=== PATIENT | female | born 1965 | race American Indian/Alaskan Native ===

== ENCOUNTER 2018-12-07 10:46 | Emergency (ER) | payer OTHER, MEDICARE ==
[2018-12-07 11:01] VITALS: BP 151/107
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
--- NOTE | 2018-12-07 12:35 | Cat Scan Report ---
CT SCAN OF THE CERVICAL SPINE: HISTORY: Neck pain. TECHNIQUE: Contiguous 1.25 mm axial images of the cervical spine were obtained. Sagittal and coronal reformatted images. FINDINGS: There has been previous anterior fusion at C5-6. The C5-6 disc space is fused. Moderate degenerative disc disease is identified at C3-4, C4-5 and C6-7. The remaining levels are within normal limits. The facet joints are unremarkable. No evidence for fracture, subluxation or bone lesion. IMPRESSION: No acute process. Stable appearance of anterior fusion of C5-6. Moderate degenerative disc disease as described.
--- NOTE | 2018-12-07 12:37 | Cat Scan Report ---
CT THORACIC SPINE WITHOUT CONTRAST History: Upper back pain. Technique: Helical CT without IV contrast. Sagittal and coronal reformatted images. Findings: There is no evidence for displaced fracture, compression deformity, subluxation or bone lesion. Minimal anterior spurring is noted in the mid thoracic spine. The posterior elements are unremarkable. The paraspinal soft tissues are within normal limits. Impression: Minimal thoracic spondylosis. No acute injury is identified.
== END 2018-12-07 13:18 | disposition home or self-care (01) ==
LOC: ED 10:46
DX: S16.1XXA Strain of muscle, fascia and tendon at neck level, initial encounter (principal); S29.012A Strain of muscle and tendon of back wall of thorax, initial encounter; S20.219A Contusion of unspecified front wall of thorax, initial encounter; F41.9 Anxiety disorder, unspecified; F32.9 Major depressive disorder, single episode, unspecified; J45.909 Unspecified asthma, uncomplicated; Z90.49 Acquired absence of other specified parts of digestive tract; Z91.040 Latex allergy status; Z88.0 Allergy status to penicillin; Z88.6 Allergy status to analgesic agent; Z90.710 Acquired absence of both cervix and uterus; Z98.890 Other specified postprocedural states; V49.49XA Driver injured in collision with other motor vehicles in traffic accident, initial encounter; Y93.89 Activity, other specified; Y92.410 Unspecified street and highway as the place of occurrence of the external cause; Y99.8 Other external cause status
CPT/HCPCS: 71111; 72125; 72128; 93005; 93010

== ENCOUNTER 2019-04-15 23:40 | Emergency (ER) | payer MEDICARE ==
--- NOTE | 2019-04-16 00:24 | XRay Report ---
EXAM: XR CHEST 1V AP HISTORY: Chest Pain TECHNIQUE: PA and lateral chest x-ray dated 04/16/2019 at 12:11 AM. COMPARISON: Chest x-ray dated December 07, 2018 FINDINGS: The heart size and mediastinum are within normal limits. The lung karimi and costophrenic angles are clear. There is no acute parenchymal infiltrate, pleural effusion, or pneumothorax seen. Status pos t anterior cervical spine fusion with metallic plate and screws in situ. The visualized bony structur es are otherwise within normal limits. Status post cholecystectomy. IMPRESSION: 1. No evidence for acute cardiopulmonary disease seen. 2. No significant interval change from the previous exam. This document is electronically signed by Fabiola Luevano MD., Apr 16 2019 12:22:50 AM ET
--- NOTE | 2019-04-16 02:05 | Emergency Department Report ---
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 Patient presented to the ER complaining of left sided chest pain, sharp in nature with no radiation. Patient stated that pain started all of a sudden around 6 PM. Patient denied any shortness of breath, cough, fever or chills. MD Complaint: chest pain -: Sudden Onset: during rest Pain Location: left chest Pain Radiation: none Severity scale (0 -10): 8 Quality: sharp Consistency: constant - Related Data Previous Rx's Medication Instructions Recorded Last Taken Type Acetaminophen/Codeine [Tylenol 1 tab PO TID PRN #15 tab 12/07/18 Unknown Rx /Codeine # 3 tab] Metaxalone [Skelaxin] 800 mg PO TID PRN #12 tablet 12/07/18 Unknown Rx Allergies Allergy/AdvReac Type Severity Reaction Status Date / Time latex Allergy Hives Verified 07/05/15 13:48 Penicillins Allergy Swelling Verified 07/05/15 13:48 aspirin AdvReac PALPITATION Verified 07/05/15 13:48 Heart Score - HEART Score History: Slightly suspicious EKG: Non-specific Age: 45-65 Risk factors: 1-2 risk factors Troponin: < normal limit HEART Score: 3 - Critical Actions Critical Actions: 0-3 pts:0.9-1.7%risk of adverse cardiac event.Candidate for discharge ED Review of Systems ROS: Stated complaint: CHEST PAIN/LT ARM PAIN Other details as noted in HPI Comment: All other systems reviewed and negative Constitutional: denies: chills, fever Respiratory: denies: cough, orthopnea, shortness of breath, SOB with exertion, SOB at rest, wheezing Cardiovascular: chest pain. denies: palpitations Gastrointestinal: denies: abdominal pain, nausea, vomiting Neurological: denies: headache, weakness ED Past Medical Hx - Past Medical History Previous Medical History?: Yes Hx Psychiatric Treatment: Yes (ANXIETY/ DEPRESSION) Hx Asthma: Yes Additional medical history: HEEL SPURS - Surgical History Past Surgical History?: Yes Hx Cholecystectomy: Yes Additional Surgical History: ECTOPIC ? L/VS/R. HYSTERECTOMY. NECK SURGERY/HERNIATED DISC - Social History Smoking Status: Former Smoker Substance Use Type: None - Medications Home Medications: Home Medications Medication Instructions Recorded Confirmed Last Taken Type Acetaminophen/Codeine [Tylenol 1 tab PO TID PRN #15 tab 12/07/18 Unknown Rx /Codeine # 3 tab] Metaxalone [Skelaxin] 800 mg PO TID PRN #12 tablet 12/07/18 Unknown Rx ED Physical Exam - General Limitations: No Limitations General appearance: alert, in no apparent distress - Head Head exam: Present: atraumatic, normocephalic, normal inspection - Eye Eye exam: Present: normal appearance, PERRL - ENT ENT exam: Present: normal exam, normal orophraynx, mucous membranes moist - Neck Neck exam: Present: normal inspection, full ROM. Absent: tenderness, meningismus, lymphadenopathy, thyromegaly - Respiratory Respiratory exam: Present: normal lung sounds bilaterally, chest wall tenderness - Cardiovascular Cardiovascular Exam: Present: regular rate, normal rhythm, normal heart sounds - GI/Abdominal GI/Abdominal exam: Present: soft, normal bowel sounds. Absent: distended, tenderness, guarding, rebound, rigid, organomegaly, mass, bruit, pulsatile mass, hernia - Extremities Exam Extremities exam: Present: normal inspection, full ROM, normal capillary refill - Back Exam Back exam: Present: normal inspection, full ROM. Absent: tenderness, CVA tenderness (R), CVA tenderness (L), muscle spasm, paraspinal tenderness, vertebral tenderness - Neurological Exam Neurological exam: Present: alert, oriented X3, CN II-XII intact, normal gait, reflexes normal - Skin Skin exam: Present: warm, intact, normal color ED Course Vital Signs 04/15/19 04/16/19 04/16/19 23:51 01:38 01:45 Temperature 97.8 F Pulse Rate 73 64 62 Respiratory 20 20 12 Rate Blood Pressure 136/92 112/72 Blood Pressure [Left] O2 Sat by Pulse 96 98 96 Oximetry 04/16/19 04/16/19 04/16/19 02:00 02:15 02:24 Temperature Pulse Rate 60 66 63 Respiratory 12 18 18 Rate Blood Pressure 112/72 105/63 Blood Pressure 105/63 [Left] O2 Sat by Pulse 95 98 Oximetry 04/16/19 04/16/19 04/16/19 02:30 02:46 03:00 Temperature Pulse Rate 65 64 60 Respiratory 14 13 12 Rate Blood Pressure 105/63 97/63 106/67 Blood Pressure [Left] O2 Sat by Pulse 93 97 Oximetry 04/16/19 04/16/19 04/16/19 03:16 03:30 03:46 Temperature Pulse Rate 56 L 58 L 60 Respiratory 13 12 14 Rate Blood Pressure 110/61 119/64 116/63 Blood Pressure [Left] O2 Sat by Pulse 99 92 Oximetry 04/16/19 04/16/19 04/16/19 04:00 04:16 04:30 Temperature Pulse Rate 63 66 58 L Respiratory 15 13 10 L Rate Blood Pressure 116/63 106/59 106/59 Blood Pressure [Left] O2 Sat by Pulse 94 96 Oximetry 04/16/19 04/16/19 04/16/19 04:46 05:00 05:16 Temperature Pulse Rate 56 L 56 L 74 Respiratory 14 11 L 10 L Rate Blood Pressure 103/56 103/56 98/54 Blood Pressure [Left] O2 Sat by Pulse 98 96 96 Oximetry 04/16/19 04/16/19 05:38 05:46 Temperature Pulse Rate Respiratory Rate Blood Pressure 103/56 103/56 Blood Pressure [Left] O2 Sat by Pulse 97 99 Oximetry ED Medical Decision Making - Lab Data Result diagrams: 04/16/19 01:45 04/16/19 01:45 - EKG Data -: EKG Interpreted by Nv EKG shows normal: sinus rhythm Rate: normal - EKG Data Interpretation: no acute changes - Radiology Data Radiology results: report reviewed Chest x-ray is unremarkable. 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 Patient presented to the ER complaining of left sided chest pain, sharp in nature with no radiation. Patient stated that pain started all of a sudden around 6 PM. Patient denied any shortness of breath, cough, fever or chills. Patient EKG is unremarkable. Troponin is negative. D-dimer elevated at CTA chest is negative for pulmonary embolism, aortic dissection or any other acute pathology in the chest. Patient advised to follow-up with her primary care physician for further workup and advised to return to the ER if symptoms are not improved. Critical care attestation.: If time is entered above; I have spent that time in minutes in the direct care of this critically ill patient, excluding procedure time. ED Disposition Clinical Impression: Chest pain Disposition: DC-01 TO HOME OR SELFCARE Is pt being admited?: No Condition: Stable Instructions: Chest Pain (ED), Costochondritis (ED) Referrals: JENNIFER CABRERA MD [Primary Care Provider] - 3-5 Days
[2019-04-16 02:12] LABS: Basophils # (Auto) 0.1 K/mm3 (0.0-0.1); Basophils % (Auto) 0.8 % (0.0-1.8); Eosinophils # (Auto) 0.4 K/mm3 (0.0-0.4); Eosinophils % (Auto) 5.1 % (0.0-4.3); Hematocrit 39.8 % (30.3-42.9); Hemoglobin 13.3 gm/dl (10.1-14.3); Lymphocytes # (Auto) 2.9 K/mm3 (1.2-5.4); Mean Corpuscular HGB Conc 33 % (30-34); Mean Corpuscular Volume 96 fl (79-97); Monocytes # (Auto) 0.5 K/mm3 (0.0-0.8); Monocytes % (Auto) 7.8 % (0.0-7.3); Platelet Count 163 K/mm3 (140-440); Red Blood Count 4.16 M/mm3 (3.65-5.03); Red Cell Distribution Width 13.9 % (13.2-15.2)
[2019-04-16 02:26] LABS: BUN/Creatinine Ratio 12; Blood Urea Nitrogen 12 mg/dL (7-17); Calcium 9.1 mg/dL (8.4-10.2); Hemolysis Index 4
[2019-04-16] MEDS ORDERED: ZOFRAN IM ONE (03:12)
[2019-04-16] MEDS ORDERED: MORPHINE IM ONE (03:12)
[2019-04-16] MEDS ORDERED: MORPHINE ONE (03:16)
--- NOTE | 2019-04-16 05:50 | Cat Scan Report ---
PROCEDURE: CT ANGIO CHEST TECHNIQUE: Computerized tomographic angiography of the chest was performed after the IV injection of iodinated nonionic contrast including image processing. The image data was postprocessed using 2-di mensional multiplanar reformatted (MPR) and 3-dimensional (MIP and/or volume rendered) techniques. Au tomated exposure control, adjustment of mA and/or kV according to patient size, or iterative reconstr uction dose optimization techniques were utilized. CT DOSE LENGTH PRODUCT: mGycm HISTORY: CHEST PAIN WITH ELEVATED D-DIMER COMPARISONS: Chest x-ray 04/16/2019 . FINDINGS: Heart and pericardium: The heart is mildly enlarged. There is no evidence of pericardial effusion.. Thoracic aorta: Normal. Pulmonary vasculature: Normal. Lymph nodes: No enlarged thoracic lymph nodes. Lungs: Normal. Pleural space: No effusion, thickening, or pneumothorax. Musculoskeletal structures: No significant abnormality. Upper abdominal structures: The gallbladder has been removed.. IMPRESSION: No evidence of pulmonary embolus, aortic dissection, or vascular congestion. No acute process in the chest. Cholecystectomy.. This document is electronically signed by Kelton Jackson MD., Apr 16 2019 05:48:22 AM ET
[2019-04-16 06:23] VITALS: BP 98/54
== END 2019-04-16 06:29 | disposition home or self-care (01) ==
LOC: ED 23:40
DX: R07.89 Other chest pain (principal); J45.909 Unspecified asthma, uncomplicated; F32.9 Major depressive disorder, single episode, unspecified; F41.9 Anxiety disorder, unspecified; Z90.710 Acquired absence of both cervix and uterus; Z90.49 Acquired absence of other specified parts of digestive tract; Z87.891 Personal history of nicotine dependence; Z91.040 Latex allergy status; Z88.0 Allergy status to penicillin; Z88.6 Allergy status to analgesic agent
CPT/HCPCS: 36415; 71045; 71275; 80048; 83690; 84484; 85025; 85379; 93005; 93010; 96372; 99285; J2270; J2405; Q9967

== ENCOUNTER 2020-02-18 19:47 | Emergency (ER) | payer MEDICARE ==
--- NOTE | 2020-02-18 22:28 | XRay Report ---
CHEST 2 VIEWS INDICATION: Chest Pain. COMPARISON: 04/16/2019 FINDINGS: Support devices: None. Heart: Within normal limits. Lungs/pleura: No acute air space or interstitial disease. No pneumothorax. Additional findings: None. IMPRESSION: 1. No acute findings. Signer Name: Wai Hair MD Signed: 02/18/2020 10:23 PM Workstation Name: [email or web address] [id number]
[2020-02-19 00:07] LABS: Basophils # (Auto) 0.1 K/mm3 (0.0-0.1); Basophils % (Auto) 0.6 % (0.0-1.8); Eosinophils # (Auto) 0.3 K/mm3 (0.0-0.4); Eosinophils % (Auto) 3.4 % (0.0-4.3); Hemoglobin 13.2 gm/dl (10.1-14.3); Lymphocytes # (Auto) 3.8 K/mm3 (1.2-5.4); Lymphocytes % (Auto) 46.1 % (13.4-35.0); Mean Corpuscular HGB Conc 33 % (30-34); Mean Corpuscular Volume 96 fl (79-97); Monocytes # (Auto) 0.6 K/mm3 (0.0-0.8); Monocytes % (Auto) 7.1 % (0.0-7.3); Platelet Count 186 K/mm3 (140-440); Red Blood Count 4.17 M/mm3 (3.65-5.03); Red Cell Distribution Width 13.3 % (13.2-15.2)
[2020-02-19 00:16] LABS: BUN/Creatinine Ratio 9; Blood Urea Nitrogen 9 mg/dL (7-17); Calcium 8.7 mg/dL (8.4-10.2); Hemolysis Index 7
[2020-02-19 00:29] LABS: Bilirubin,Urine NEG (Negative); Blood,Urine MOD (Negative); Color,Urine Yellow (Yellow); Mucus,Urine FEW /HPF; Protein,Urine <15 mg/dL mg/dL (Negative); Urobilinogen,Urine < 2.0 mg/dL (<2.0)
[2020-02-19] MEDS ORDERED: CYCLOBENZAPRINE 10 MG TAB PO ONE (02:38)
[2020-02-19] MEDS ORDERED: KETOROLAC 30 MG/1 ML INJ IM ONE (02:38)
--- NOTE | 2020-02-19 02:43 | Emergency Department Report ---
ED Chest Pain HPI - General Chief Complaint: Chest Pain Stated Complaint: CHEST PAIN/KIDNEY PAIN Time Seen by Provider: 02/19/20 02:30 Source: patient Mode of arrival: Ambulatory Limitations: No Limitations - History of Present Illness Initial Comments: 54-year-old -[place] female presents to the emergency department with a complaint of a one-week history of left-sided chest pain and right-sided lower back pain. This is also associated with some intermittent shortness of breath. The patient denies any fever, nausea, vomiting, diaphoresis, dysuria, vaginal discharge, vaginal bleeding. She does say that there is been some intermittent blood seen in the urine. The patient also says that she had some procedure done, 1 week ago, with her urologist. However she is unable to tell me what the procedure or test was, nor the name of her urologist. She follows with [facility] cardiology. She has a past medical history of asthma. Denies any tobacco or illicit drug use. Denies any family history of early cardiac events. She has not taken anything for symptoms prior to presentation today. - Related Data Previous Rx's Medication Instructions Recorded Last Taken Type Acetaminophen/Codeine [Tylenol 1 tab PO TID PRN #15 tab 12/07/18 Unknown Rx /Codeine # 3 tab] Metaxalone [Skelaxin] 800 mg PO TID PRN #12 tablet 12/07/18 Unknown Rx Ondansetron [Zofran Odt] 4 mg PO Q8HR PRN #14 tab.rapdis 04/16/19 Unknown Rx traMADoL [Ultram 50 MG tab] 50 mg PO Q4HR PRN #14 tablet 04/16/19 Unknown Rx Cyclobenzaprine [Flexeril] 10 mg PO TID PRN #12 tablet 02/19/20 Unknown Rx Allergies Allergy/AdvReac Type Severity Reaction Status Date / Time latex Allergy Hives Verified 07/05/15 13:48 nut - unspecified Allergy Itching Verified 02/18/20 21:33 Penicillins Allergy Swelling Verified 07/05/15 13:48 aspirin AdvReac PALPITATION Verified 07/05/15 13:48 Heart Score - HEART Score History: Slightly suspicious EKG: Normal Age: 45-65 Risk factors: No known risk factors Troponin: < normal limit HEART Score: 1 - Critical Actions Critical Actions: 0-3 pts:0.9-1.7%risk of adverse cardiac event.Candidate for discharge ED Review of Systems ROS: Stated complaint: CHEST PAIN/KIDNEY PAIN Other details as noted in HPI ED Past Medical Hx - Past Medical History Previous Medical History?: Yes Hx Psychiatric Treatment: Yes (ANXIETY/ DEPRESSION) Hx Asthma: Yes Additional medical history: HEEL SPURS - Surgical History Past Surgical History?: Yes Hx Cholecystectomy: Yes Additional Surgical History: ECTOPIC ? L/VS/R. HYSTERECTOMY. NECK SURGERY/HERNIATED DISC - Social History Smoking Status: Never Smoker - Medications Home Medications: Home Medications Medication Instructions Recorded Confirmed Last Taken Type Acetaminophen/Codeine [Tylenol 1 tab PO TID PRN #15 tab 12/07/18 Unknown Rx /Codeine # 3 tab] Metaxalone [Skelaxin] 800 mg PO TID PRN #12 tablet 12/07/18 Unknown Rx Ondansetron [Zofran Odt] 4 mg PO Q8HR PRN #14 tab.rapdis 04/16/19 Unknown Rx traMADoL [Ultram 50 MG tab] 50 mg PO Q4HR PRN #14 tablet 04/16/19 Unknown Rx Cyclobenzaprine [Flexeril] 10 mg PO TID PRN #12 tablet 02/19/20 Unknown Rx ED Physical Exam - General Limitations: No Limitations - Other Other exam information: GENERAL: The patient is well-developed well-nourished. HENT: Normocephalic. Atraumatic. Patient has moist mucous membranes. EYES: Extraocular motions are intact. NECK: Supple. Trachea is midline. CHEST/LUNGS: Clear to auscultation. There is no respiratory distress noted. There is reproducible chest wall left-sided tenderness to palpation, but no crepitus or deformity. HEART/CARDIOVASCULAR: Regular. There is no tachycardia. There is no murmur. ABDOMEN: Abdomen is soft, nontender. Patient has normal bowel sounds. There is no abdominal distention. SKIN: Skin is warm and dry. NEURO: The patient is awake, alert, and oriented. The patient is cooperative. The patient has no focal neurologic deficits. Normal speech. MUSCULOSKELETAL: There is no tenderness or deformity. There is no limitation range of motion. There is no evidence of acute injury. BACK: No midline thoracic or lumbar tenderness to palpation, step-off or deformity. There is reproducible right lower thoracic and lumbar paraspinal te nderness to palpation. ED Course Vital Signs 02/18/20 21:38 Temperature 98.5 F Pulse Rate 74 Respiratory 20 Rate Blood Pressure 124/80 O2 Sat by Pulse 98 Oximetry REBEL score - Rebel Score Age > 65: (0) No Aspirin use within the Past 7 Days: (0) No 3 or more CAD Risk Factors: (0) No 2 or more Angina events in past 24 hrs: (1) Yes Known CAD with more than 50% Stenosis: (0) No Elevated Cardiac Markers: (0) No ST Deviation Greater than 0.5mm: (0) No REBEL Score: 1 ED Medical Decision Making - Lab Data Result diagrams: 02/18/20 23:03 02/18/20 23:03 - EKG Data -: EKG Interpreted by Me EKG shows normal: sinus rhythm, axis, intervals, QRS complexes, ST-T waves Rate: normal - EKG Data When compared to previous EKG there are: previous EKG unavailable Interpretation: normal EKG - Radiology Data Radiology results: image reviewed interpreted by me: Chest x-ray does not show any acute process. There are no pleural effusions, obvious pneumonia and there is no pneumothorax. - Medical Decision Making This patient presents with a one-week history of some left-sided chest pain and right mid to lower back pain. On examination she has normal heart and lung sounds to auscultation. There is some reproducible chest pain to palpation without crepitus or deformity. There is some reproducible right-sided paraspinal tenderness to palpation but no midline thoracic or lumbar tenderness to palpation, step-off or deformity. EKG is normal without ST elevation AR, ischemia or dysrhythmia. Chest x-ray does not show any pneumonia, pleural effusions, pneumothorax, focal consolidation, or any other acute process. Patient's labs have been unremarkable including CBC, metabolic panel and negative troponins x2. She is low on the heart and REBEL score. She is low on the Wells score criteria and negative on the pulmonary embolism rule out criteria. The patient was given a shot of Toradol here and a dose of Flexeril. She has good outpatient follow-up with primary care and cardiology. She had made some mention regarding occasional hematuria and some procedure she had with urology, however the urinalysis does not show any UTI or hematuria at this time. Her vital signs have been stable throughout her ED course. She will return to the emergency department with any worsening of her symptoms or any acute distress. Critical Care Time: No Critical care attestation.: If time is entered above; I have spent that time in minutes in the direct care of this critically ill patient, excluding procedure time. ED Disposition Clinical Impression: Atypical chest pain, Chest wall pain Back pain Qualifiers: Back pain location: back pain in unspecified location Chronicity: unspecified Back pain laterality: right Qualified Code(s): M54.9 - Dorsalgia, unspecified Disposition: DC- TO HOME OR SELFCARE Is pt being admited?: No Condition: Stable Instructions: Chest Pain (ED), Costochondritis (ED), Back Pain (ED) Additional Instructions: Please follow-up with your primary care physician and customer engagement representative in the next few days. Return to the emergency department with any worsening of your symptoms or any acute distress. You have been prescribed a medication that is sedating and therefore should not be taken prior to driving, working, and responsible for children and in no way should be mixed with alcohol of any quantity. Prescriptions: Cyclobenzaprine [Flexeril] 10 mg PO TID PRN #12 tablet PRN Reason: Muscle Spasm Referrals: PRIMARY CAREMD [Primary Care Provider] - 2-3 Days [facility] [Provider Group] - 2-3 Days Time of Disposition: 03:25
[2020-02-19 04:10] VITALS: BP 125/82
== END 2020-02-19 04:09 | disposition home or self-care (01) ==
LOC: ED 19:47
DX: R07.89 Other chest pain (principal); M54.5 Low back pain; R06.02 Shortness of breath; J45.909 Unspecified asthma, uncomplicated; F41.9 Anxiety disorder, unspecified; F32.89 Other specified depressive episodes; Z79.899 Other long term (current) drug therapy
CPT/HCPCS: 36415; 71046; 80048; 81001; 84484; 85025; 93005; 93010; 96372; 99284; J1885

== ENCOUNTER 2020-04-29 19:14 | Emergency (ER) | payer MEDICARE ==
[2020-04-29 20:17] LABS: Basophils % (Auto) 0.3 % (0.0-1.8); Eosinophils % (Auto) 0.2 % (0.0-4.3); Hematocrit 40.5 % (30.3-42.9); Hemoglobin 13.5 gm/dl (10.1-14.3); Lymphocytes # (Auto) 2.5 K/mm3 (1.2-5.4); Lymphocytes % (Auto) 22.6 % (13.4-35.0); Mean Corpuscular HGB Conc 33 % (30-34); Mean Corpuscular Volume 95 fl (79-97); Monocytes # (Auto) 1.1 K/mm3 (0.0-0.8); Monocytes % (Auto) 9.7 % (0.0-7.3); Platelet Count 202 K/mm3 (140-440); Red Blood Count 4.29 M/mm3 (3.65-5.03); Red Cell Distribution Width 13.6 % (13.2-15.2)
--- NOTE | 2020-04-29 20:17 | Emergency Department Report ---
ED Syncope HPI - General Chief Complaint: Syncope Stated Complaint: FALL Time Seen by Provider: 04/29/20 20:04 Source: patient Exam Limitations: no limitations - History of Present Illness Initial Comments: Chief complaint: "Too much medicine my blood pressure is low. I keep falling." HPI: This is a 54-year-old female with history of asthma, anxiety, hypertension who presents with recurrent syncope over the last several months. She was evaluated by neurologist 4 weeks ago. Neurologist informed her that her blood pressure is low because she is taking too much medication. Her PCP discontinue metoprolol. She is now taking lisinopril and hydrochlorothiazide. She recently lost 30 pounds. She only eats 1 meal per day. She was seen by my colleague in the emergency department this morning. Her blood pressure was low at that time. Work-up notable for hypokalemia. Currently she denies chest pain abdominal pain. She has mild headache. She likely struck her head when she fell today. Medications include trazodone, Cogentin, omeprazole, lisinopril/hydrochlorothia zide Timing/Prior Episodes: recent history Precipitating Factors: Positive: none, other (Hypotension) Context: standing, activity Loss of Consciousness: brief (seconds) Current Symptoms: back to normal - Related Data Allergies/Adverse Reactions: Allergies latex Allergy (Verified 07/05/15 13:48) Hives nut - unspecified Allergy (Verified 02/18/20 21:33) Itching Penicillins Allergy (Verified 07/05/15 13:48) Swelling aspirin Adverse Reaction (Verified 07/05/15 13:48) PALPITATION Home Medications: Ambulatory Orders Acetaminophen/Codeine [Tylenol /Codeine # 3 tab] 1 tab PO TID PRN #15 tab 12/07/18 Metaxalone [Skelaxin] 800 mg PO TID PRN #12 tablet 12/07/18 Ondansetron [Zofran Odt] 4 mg PO Q8HR PRN #14 tab.rapdis 04/16/19 traMADoL [Ultram 50 MG tab] 50 mg PO Q4HR PRN #14 tablet 04/16/19 Cyclobenzaprine [Flexeril] 10 mg PO TID PRN #12 tablet 02/19/20 Potassium Chloride [K-Dur] 2 tab PO QDAY 15 Days #30 tablet 04/29/20 ED Review of Systems ROS: Stated complaint: FALL Other details as noted in HPI Comment: All other systems reviewed and negative Constitutional: denies: fever, malaise Respiratory: denies: cough, shortness of breath Cardiovascular: syncope. denies: chest pain ED Past Medical Hx - Past Medical History Previous Medical History?: Yes Hx Psychiatric Treatment: Yes (ANXIETY/ DEPRESSION) Hx Asthma: Yes Additional medical history: HEEL SPURS - Surgical History Past Surgical History?: Yes Hx Cholecystectomy: Yes Additional Surgical History: ECTOPIC ? L/VS/R. HYSTERECTOMY. NECK SURGERY/HERNIATED DISC - Social History Smoking Status: Never Smoker - Medications Home Medications: Home Medications Medication Instructions Recorded Confirmed Last Taken Type Acetaminophen/Codeine [Tylenol 1 tab PO TID PRN #15 tab 12/07/18 Unknown Rx /Codeine # 3 tab] Metaxalone [Skelaxin] 800 mg PO TID PRN #12 tablet 12/07/18 Unknown Rx Ondansetron [Zofran Odt] 4 mg PO Q8HR PRN #14 tab.rapdis 04/16/19 Unknown Rx traMADoL [Ultram 50 MG tab] 50 mg PO Q4HR PRN #14 tablet 04/16/19 Unknown Rx Cyclobenzaprine [Flexeril] 10 mg PO TID PRN #12 tablet 02/19/20 Unknown Rx Potassium Chloride [K-Dur] 2 tab PO QDAY 15 Days #30 tablet 04/29/20 Unknown Rx ED Physical Exam - General Limitations: No Limitations General appearance: alert, in no apparent distress - Head Head exam: Present: normocephalic, other (Several small healing forehead contusions) - Eye Eye exam: Present: normal appearance - ENT ENT exam: Present: mucous membranes moist - Neck Neck exam: Present: normal inspection, full ROM - Respiratory Respiratory exam: Present: normal lung sounds bilaterally. Absent: respiratory distress, wheezes, rales, rhonchi - Cardiovascular Cardiovascular Exam: Present: regular rate, normal rhythm, normal heart sounds. Absent: systolic murmur, diastolic murmur, rubs, gallop - GI/Abdominal GI/Abdominal exam: Present: soft, normal bowel sounds. Absent: distended, tenderness, guarding, rebound - Extremities Exam Extremities exam: Present: normal inspection - Neurological Exam Neurological exam: Present: alert, oriented X3, normal gait - Psychiatric Psychiatric exam: Present: normal affect, normal mood - Skin Skin exam: Present: warm, dry, intact, normal color. Absent: rash ED Course Vital Signs 04/29/20 04/29/20 04/29/20 19:30 19:37 20:13 Temperature 98.6 F Pulse Rate 99 H Respiratory 18 18 Rate Blood Pressure 94/62 Blood Pressure 90/60 [Right] O2 Sat by Pulse 96 100 Oximetry 04/29/20 20:15 Temperature Pulse Rate 84 Respiratory 18 Rate Blood Pressure Blood Pressure 102/63 [Right] O2 Sat by Pulse 100 Oximetry ED Medical Decision Making - Lab Data Result diagrams: 04/29/20 19:56 04/29/20 19:56 - EKG Data EKG shows normal: sinus rhythm, axis, intervals, QRS complexes, ST-T waves Rate: normal - EKG Data Interpretation: no acute changes - Medical Decision Making This is a 54-year-old female with history of asthma anxiety hypertension who presents with recurrent syncope over the last several months. Neurologist impression hypotension due to antihypertensive medication. Patient has recently lost 30 pounds. Metoprolol was changed to lisinopril hydrochlorothiazide. I have asked patient to stop taking lisinopril hydrochlorothiazide. She will monitor her morning and evening blood pressure readings at home with her personal cuff. She will follow-up with her primary physician. With recent weight loss and decreased food intake, I feel that she may not need antihypertensive medication. Upon lab review, decrease hypovolemia evident with mild metabolic acidosis increased creatinine hypokalemia. I strongly encouraged patient to stop taking blood pressure medication until she is reevaluated by her primary physician Critical care attestation.: If time is entered above; I have spent that time in minutes in the direct care of this critically ill patient, excluding procedure time. ED Disposition Clinical Impression: Recurrent syncope, Hypotension Disposition: DC-01 TO HOME OR SELFCARE Is pt being admited?: No Does the pt Need Aspirin: No Condition: Stable Instructions: Syncope (ED), Hypotension (ED) Additional Instructions: Please stop taking your blood pressure medicine hydrochlorothiazide lisinopril. Please take your morning and evening blood pressure readings. Please take these readings to your next primary care appointment. Prescriptions: Potassium Chloride [K-Dur] 2 tab PO QDAY 15 Days #30 tablet Referrals: PRIMARY CARE, [Referring] - 3-5 Days
[2020-04-29 20:39] LABS: BUN/Creatinine Ratio 11; Blood Urea Nitrogen 17 mg/dL (7-17); Calcium 9.2 mg/dL (8.4-10.2); Hemolysis Index 6
--- NOTE | 2020-04-29 21:00 | XRay Report ---
CHEST 2 VIEWS, 04/29/2020 7:40 PM INDICATION: Chest pain COMPARISON: Chest radiograph, 04/28/2020 FINDINGS: Support devices: None. Heart: The heart is normal in size. Lungs/pleura: The lungs are clear of focal airspace disease or significant pleural effusion. Additional findings: Evaluation of bony structures demonstrates no evidence of acute bony abnormality . IMPRESSION: 1. No evidence of acute cardiopulmonary process. Signer Name: Jannette Louise MD Signed: 04/29/2020 8:56 PM Workstation Name: [id number]
[2020-04-29 21:04] VITALS: BP 90/55
== END 2020-04-29 21:06 | disposition home or self-care (01) ==
LOC: ED 19:14
DX: R55 Syncope and collapse (principal); I95.9 Hypotension, unspecified; F32.9 Major depressive disorder, single episode, unspecified; J45.909 Unspecified asthma, uncomplicated; Z90.49 Acquired absence of other specified parts of digestive tract; Z90.710 Acquired absence of both cervix and uterus; Z98.890 Other specified postprocedural states; Z79.899 Other long term (current) drug therapy; Z88.0 Allergy status to penicillin; Z91.040 Latex allergy status; Z91.018 Allergy to other foods; Z88.8 Allergy status to other drugs, medicaments and biological substances
CPT/HCPCS: 36415; 71046; 80048; 84484; 85025; 93005

== ENCOUNTER 2020-11-05 10:17 | Observation (INO) | payer MEDICARE ==
--- NOTE | 2020-11-05 10:58 | XRay Report ---
CHEST PA AND LATERAL VIEWS INDICATION: Chest Pain. COMPARISON: 04/29/2020 FINDINGS: Support devices: None. Heart: Within normal limits. Lungs/Pleura: No acute pulmonary or pleural findings. IMPRESSION: 1. No acute findings. Signer Name: Bertram Deshpande MD Signed: 11/05/2020 10:53 AM Workstation Name: [id number]
--- NOTE | 2020-11-05 11:04 | Emergency Department Report ---
ED Chest Pain HPI - General Chief Complaint: Chest Pain Stated Complaint: HBP Time Seen by Provider: 11/05/20 10:49 Source: patient Mode of arrival: Ambulatory Limitations: No Limitations - History of Present Illness Initial Comments: This is a 55-year-old -[place] female who presents to the emergency department from the dentist office with a complaint of some chest pain that has been going on since last night. The patient says that she got one of her allergy shots yesterday and last night "I felt weird, like I was not myself." At the time the patient also complained of developing some chest pain. It resolved overnight but returned again this morning. She went to the dentist office and told him of her chest pain and was told to go directly to the emergency department. Currently the chest pain is midsternal with some radiation to the right lateral rib cage. It is a sharp pain, currently 8 out of 10 in intensity. No known aggravating or alleviating factors. Patient has not taken anything for her symptoms prior to presentation. She has a past medical history of hypertension, asthma, and previous Qqejd-[id number] with s ubsequent ablation. She follows with Dr. Fuentes at [facility]. Her primary care physician is "Dr. Guzmán." She denies any tobacco or illicit drug use. No recent travel or sick contacts at home. - Related Data Previous Rx's Medication Instructions Recorded Last Taken Type Acetaminophen/Codeine [Tylenol 1 tab PO TID PRN #15 tab 12/07/18 Unknown Rx /Codeine # 3 tab] Metaxalone [Skelaxin] 800 mg PO TID PRN #12 tablet 12/07/18 Unknown Rx Ondansetron [Zofran ODT TAB] 4 mg PO Q8HR PRN #14 tab.rapdis 04/16/19 Unknown Rx traMADoL [Ultram 50 MG tab] 50 mg PO Q4HR PRN #14 tablet 04/16/19 Unknown Rx Cyclobenzaprine [Flexeril] 10 mg PO TID PRN #12 tablet 02/19/20 Unknown Rx Potassium Chloride [K-Dur] 2 tab PO QDAY 15 Days #30 tablet 04/29/20 Unknown Rx Allergies Allergy/AdvReac Type Severity Reaction Status Date / Time latex Allergy Hives Verified 07/05/15 13:48 nut - unspecified Allergy Itching Verified 02/18/20 21:33 Penicillins Allergy Swelling Verified 07/05/15 13:48 aspirin AdvReac PALPITATION Verified 07/05/15 13:48 Heart Score - HEART Score History: Slightly suspicious EKG: Normal Age: 45-65 Risk factors: 1-2 risk factors Troponin: < normal limit HEART Score: 2 - Critical Actions Critical Actions: 0-3 pts:0.9-1.7%risk of adverse cardiac event.Candidate for discharge ED Review of Systems ROS: Stated complaint: HBP Other details as noted in HPI Comment: All other systems reviewed and negative Constitutional: denies: chills, fever Eyes: denies: eye pain, vision change ENT: denies: ear pain, throat pain Respiratory: shortness of breath. denies: cough Cardiovascular: chest pain. denies: edema Gastrointestinal: denies: nausea, vomiting Genitourinary: denies: dysuria, discharge Musculoskeletal: denies: back pain, arthralgia Skin: denies: rash, lesions Neurological: denies: headache, weakness ED Past Medical Hx - Past Medical History Previous Medical History?: Yes Hx Psychiatric Treatment: Yes (ANXIETY/ DEPRESSION) Hx Asthma: Yes Additional medical history: HEEL SPURS - Surgical History Past Surgical History?: Yes Hx Cholecystectomy: Yes Additional Surgical History: ECTOPIC ? L/VS/R. HYSTERECTOMY. NECK SURGERY/HERNIATED DISC - Social History Smoking Status: Never Smoker Substance Use Type: None - Medications Home Medications: Home Medications Medication Instructions Recorded Confirmed Last Taken Type Acetaminophen/Codeine [Tylenol 1 tab PO TID PRN #15 tab 12/07/18 Unknown Rx /Codeine # 3 tab] Metaxalone [Skelaxin] 800 mg PO TID PRN #12 tablet 12/07/18 Unknown Rx Ondansetron [Zofran ODT TAB] 4 mg PO Q8HR PRN #14 tab.rapdis 04/16/19 Unknown Rx traMADoL [Ultram 50 MG tab] 50 mg PO Q4HR PRN #14 tablet 04/16/19 Unknown Rx Cyclobenzaprine [Flexeril] 10 mg PO TID PRN #12 tablet 02/19/20 Unknown Rx Potassium Chloride [K-Dur] 2 tab PO QDAY 15 Days #30 tablet 04/29/20 Unknown Rx ED Physical Exam - General Limitations: No Limitations - Other Other exam information: GENERAL: The patient is well-developed well-nourished. HENT: Normocephalic. Atraumatic. Patient has moist mucous membranes. EYES: Extraocular motions are intact. There is reproducible midsternal chest pain to palpation. No crepitus or deformity. NECK: Supple. Trachea is midline. CHEST/LUNGS: Clear to auscultation. There is no respiratory distress noted. HEART/CARDIOVASCULAR: Regular. There is no tachycardia. There is no murmur. ABDOMEN: Abdomen is soft. Mild epigastric tenderness to palpation. No guarding. Patient has normal bowel sounds. There is no abdominal distention. SKIN: Skin is warm and dry. NEURO: The patient is awake, alert, and oriented. The patient is cooperative. The patient has no focal neurologic deficits. Normal speech. MUSCULOSKELETAL: There is no tenderness or deformity. There is no limitation range of motion. ED Course Vital Signs 11/05/20 11/05/20 11/05/20 10:22 11:03 11:16 Temperature 98.5 F Pulse Rate 71 64 Respiratory 18 13 11 L Rate Blood Pressure 174/98 Blood Pressure [Right] O2 Sat by Pulse 98 99 99 Oximetry 11/05/20 11/05/20 11/05/20 11:30 11:46 12:00 Temperature Pulse Rate 59 L 61 59 L Respiratory 16 18 22 Rate Blood Pressure Blood Pressure [Right] O2 Sat by Pulse 99 98 98 Oximetry 11/05/20 11/05/20 11/05/20 12:16 12:30 12:46 Temperature Pulse Rate 61 60 59 L Respiratory 14 12 13 Rate Blood Pressure Blood Pressure [Right] O2 Sat by Pulse 99 99 99 Oximetry 11/05/20 11/05/20 11/05/20 13:00 13:16 14:36 Temperature Pulse Rate 59 L 64 69 Respiratory 19 14 20 Rate Blood Pressure Blood Pressure 146/92 [Right] O2 Sat by Pulse 98 99 98 Oximetry - Consultations Consultation #1: 11/05/20 14:50 I spoke to the business support on-call, Dr. Lo, regarding the hyponatremia. He has recommended that the patient be admitted overnight and he will consult on this patient. He has asked for a urinalysis, urine sodium, and urine osmolality to be ordered. REBEL score - Rebel Score Age > 65: (0) No Aspirin use within the Past 7 Days: (0) No 3 or more CAD Risk Factors: (0) No 2 or more Angina events in past 24 hrs: (1) Yes Known CAD with more than 50% Stenosis: (0) No Elevated Cardiac Markers: (0) No ST Deviation Greater than 0.5mm: (0) No REBEL Score: 1 ED Medical Decision Making - Lab Data Result diagrams: 11/05/20 11:21 11/05/20 15:01 - EKG Data -: EKG Interpreted by Me EKG shows normal: sinus rhythm, axis, intervals, QRS complexes (LVH), ST-T waves Rate: normal - EKG Data When compared to previous EKG there are: no significant change Interpretation: unchanged when compared t (04/28/20) - Medical Decision Making This patient presents to the emergency department with complaints of some midsternal chest pain with some radiation towards the right lateral ribs/chest. EKG does not have any morphology consistent with ST elevation myocardial infarction. Chest x-ray does not show any pneumonia, pleural effusions, pneumothorax, or any acute process. Patient's labs came back showing hypernatremia with a sodium of 156 and hyperchloremia. I spoke with nephrology who recommended observational admission and asked for some other urine labs to be ordered. They will consult on this patient. The patient has a low heart and REBEL score thus far. Patient will be admitted to the hospital for further evaluation and treatment and was accepted for admission by the hospitalist, Dr. Simon. Critical Care Time: No Critical care attestation.: If time is entered above; I have spent that time in minutes in the direct care of this critically ill patient, excluding procedure time. ED Disposition Clinical Impression: Acute hypernatremia, Acute chest pain Disposition: OP ADMIT IP TO THIS HOSP Is pt being admited?: Yes Condition: Serious Time of Disposition: 14:50
[2020-11-05 11:37] LABS: Basophils % (Auto) 0.7 % (0.0-1.8); Eosinophils # (Auto) 0.1 K/mm3 (0.0-0.4); Eosinophils % (Auto) 1.6 % (0.0-4.3); Hematocrit 37.5 % (30.3-42.9); Hemoglobin 12.7 gm/dl (10.1-14.3); Mean Corpuscular HGB Conc 34 % (30-34); Mean Corpuscular Volume 95 fl (79-97); Monocytes # (Auto) 0.4 K/mm3 (0.0-0.8); Monocytes % (Auto) 7.2 % (0.0-7.3); Platelet Count 168 K/mm3 (140-440); Red Blood Count 3.93 M/mm3 (3.65-5.03); Red Cell Distribution Width 14.6 % (13.2-15.2)
[2020-11-05 12:00] LABS: Alanine Aminotransferase 19 units/L (7-56); Albumin 3.7 g/dL (3.9-5); BUN/Creatinine Ratio 7; Blood Urea Nitrogen 7 mg/dL (7-17); Calcium 9.1 mg/dL (8.4-10.2); Hemolysis Index 6
--- NOTE | 2020-11-05 14:48 | Cat Scan Report ---
CTA CHEST WITH CONTRAST INDICATION : Chest pain, elevated d-dimer. TECHNIQUE: Axial imaging performed through the chest, with contrast bolus timing set to maximize opa cification of the pulmonary arteries. Sagittal and coronal reformatted images. 3-plane MIP reformatte d images were obtained. All CT scans at this location are performed using CT dose reduction for ALAR A by means of automated exposure control. 100 mL of intravenous contrast administered. COMPARISON: 04/16/2019 FINDINGS: Bolus: Contrast bolus timing is adequate. PTE: No filling defect is present to suggest PTE. Mediastinum: Heart and great vessels appear normal. No pathologic mediastinal adenopathy. Lungs: Lungs are clear. Bones: Degenerative changes in the spine with nothing acute. Upper abdomen: Limited imaging of the upper abdomen shows nothing acute. IMPRESSION: Negative for PTE. Clear lungs. No significant change since 04/16/2019. Signer Name: J Carlos Doe Jr, MD Signed: 11/05/2020 2:43 PM Workstation Name: [id number]
[2020-11-05 15:35] LABS: Bilirubin,Urine NEG (Negative); Blood,Urine SM (Negative); Color,Urine Colorless (Yellow); Mucus,Urine FEW /HPF; Protein,Urine <15 mg/dL mg/dL (Negative); Urobilinogen,Urine < 2.0 mg/dL (<2.0)
[2020-11-05 15:40] LABS: WBC,Urine < 1.0 /HPF (0.0-6.0)
[2020-11-05 15:43] LABS: BUN/Creatinine Ratio 7; Blood Urea Nitrogen 6 mg/dL (7-17); Calcium 8.5 mg/dL (8.4-10.2); Hemolysis Index 7
[2020-11-05 16:11] LABS: Osmolality,Urine 240 Mosm/kg
[2020-11-05 17:34] VITALS: BP 144/93
--- NOTE | 2020-11-06 07:40 | Event Note ---
Date: 11/05/20 Repeat sodium level came normal high D-dimer chest CT angiogram was done which was normal atypical chest pain Patient discharged home with follow-up for chest pain
== END 2020-11-05 17:45 | disposition home or self-care (01) ==
LOC: ED 10:17 → 4A 14:50
PROVIDERS: ADMIT Internal Medicine; ATTEND Internal Medicine
DX: R07.89 Other chest pain (principal); E87.0 Hyperosmolality and hypernatremia; F41.9 Anxiety disorder, unspecified; F32.9 Major depressive disorder, single episode, unspecified; J45.909 Unspecified asthma, uncomplicated; Z90.49 Acquired absence of other specified parts of digestive tract; Z90.710 Acquired absence of both cervix and uterus; Z98.890 Other specified postprocedural states
CPT/HCPCS: 36415; 71046; 71275; 80048; 80053; 81001; 83690; 83935; 84300; 84484; 85025; 85379; 93005; 99285; G0378; Q9967

== ENCOUNTER 2021-10-01 18:40 | Emergency (ER) | payer MEDICARE ==
[2021-10-01 19:26] LABS: Basophils # (Auto) 0.1 K/mm3 (0.0-0.1); Basophils % (Auto) 0.9 % (0.0-1.8); Eosinophils # (Auto) 0.3 K/mm3 (0.0-0.4); Eosinophils % (Auto) 4.2 % (0.0-4.3); Hematocrit 38.5 % (30.3-42.9); Hemoglobin 12.8 gm/dl (10.1-14.3); Lymphocytes # (Auto) 3.4 K/mm3 (1.2-5.4); Lymphocytes % (Auto) 44.9 % (13.4-35.0); Mean Corpuscular HGB Conc 33 % (30-34); Mean Corpuscular Volume 96 fl (79-97); Monocytes # (Auto) 0.6 K/mm3 (0.0-0.8); Monocytes % (Auto) 8.2 % (0.0-7.3); Platelet Count 190 K/mm3 (140-440); Red Blood Count 4.01 M/mm3 (3.65-5.03); Red Cell Distribution Width 13.4 % (13.2-15.2)
[2021-10-01] MEDS ORDERED: ALUM-MAG HYDROXIDE-SIMETHICONE 200-200-20MG/5ML ORAL LIQD 30 ML PO ONE (19:28)
[2021-10-01] MEDS ORDERED: FAMOTIDINE 20 MG TAB PO ONE (19:28)
[2021-10-01 19:36] LABS: Alanine Aminotransferase 19 units/L (7-56); Albumin 3.7 g/dL (3.9-5); BUN/Creatinine Ratio 13; Blood Urea Nitrogen 10 mg/dL (7-17); Calcium 8.2 mg/dL (8.4-10.2); Hemolysis Index 74
--- NOTE | 2021-10-01 19:41 | XRay Report ---
CHEST 2 VIEWS INDICATION: chest pain. COMPARISON: 11/05/2020 FINDINGS: Support devices: None. Heart: Within normal limits. Lungs/Pleura: No acute air space or interstitial disease. No significant pleural effusion. IMPRESSION: No acute findings. Signer Name: Fabrice Camargo MD Signed: 10/01/2021 7:37 PM Workstation Name: [id number]
--- NOTE | 2021-10-01 21:11 | Emergency Department Report ---
ED General Adult HPI - General Chief complaint: Chest Pain Stated complaint: CHEST PAIN Time Seen by Provider: 10/01/21 19:28 Source: patient Mode of arrival: Ambulatory Limitations: No Limitations - History of Present Illness Initial comments: Patient is a 56-year-old female presents emergency room complaints of chest pain that began earlier tonight. She states that it was on the right side of her chest and then was radiating across the chest. She states that it felt like gas versus indigestion. She denies any shortness of breath, nausea, vomiting, diarrhea, fever, cough, hemoptysis, leg swelling, calf pain, diaphoresis. Past medical history of COPD, anxiety, depression. She states that she has a former history of hypertension but has been able to get off her medication and now just controls her blood pressure with diet and exercise. She has an allergy to latex, nuts, penicillin, aspirin. She is a former smoker and quit approximately 7 to 8 years ago. She states that her mother has a history of CAD but is still living at this time. she states she had a stress test earlier this year which she reports was normal. - Related Data Previous Rx's Medication Instructions Recorded Last Taken Type Acetaminophen/Codeine [Tylenol 1 tab PO TID PRN #15 tab 12/07/18 Unknown Rx /Codeine # 3 tab] Metaxalone [Skelaxin] 800 mg PO TID PRN #12 tablet 12/07/18 Unknown Rx Ondansetron [Zofran ODT TAB] 4 mg PO Q8HR PRN #14 tab.rapdis 04/16/19 Unknown Rx traMADoL [Ultram 50 MG tab] 50 mg PO Q4HR PRN #14 tablet 04/16/19 Unknown Rx Cyclobenzaprine [Flexeril] 10 mg PO TID PRN #12 tablet 02/19/20 Unknown Rx Potassium Chloride [K-Dur] 2 tab PO QDAY 15 Days #30 tablet 04/29/20 Unknown Rx Allergies Allergy/AdvReac Type Severity Reaction Status Date / Time latex Allergy Hives Verified 10/01/21 18:42 nut - unspecified Allergy Itching Verified 10/01/21 18:42 Penicillins Allergy Swelling Verified 10/01/21 18:42 aspirin AdvReac PALPITATION Verified 10/01/21 18:42 ED Review of Systems ROS: Stated complaint: CHEST PAIN Other details as noted in HPI Comment: All other systems reviewed and negative ED Past Medical Hx - Past Medical History Hx Pulmonary Embolism: Yes Hx Psychiatric Treatment: Yes (ANXIETY/ DEPRESSION) Hx Asthma: Yes Additional medical history: HEEL SPURS - Surgical History Hx Cholecystectomy: Yes Additional Surgical History: ECTOPIC ? L/VS/R. HYSTERECTOMY. 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 - Social History Smoking Status: Never Smoker Substance Use Type: None - Medications Home Medications: Home Medications Medication Instructions Recorded Confirmed Last Taken Type Acetaminophen/Codeine [Tylenol 1 tab PO TID PRN #15 tab 12/07/18 Unknown Rx /Codeine # 3 tab] Metaxalone [Skelaxin] 800 mg PO TID PRN #12 tablet 12/07/18 Unknown Rx Ondansetron [Zofran ODT TAB] 4 mg PO Q8HR PRN #14 tab.rapdis 04/16/19 Unknown Rx traMADoL [Ultram 50 MG tab] 50 mg PO Q4HR PRN #14 tablet 04/16/19 Unknown Rx Cyclobenzaprine [Flexeril] 10 mg PO TID PRN #12 tablet 02/19/20 Unknown Rx Potassium Chloride [K-Dur] 2 tab PO QDAY 15 Days #30 tablet 04/29/20 Unknown Rx ED Physical Exam - General Limitations: No Limitations General appearance: alert, in no apparent distress - Head Head exam: Present: atraumatic, normocephalic - Eye Eye exam: Present: normal appearance - ENT ENT exam: Present: mucous membranes moist - Respiratory Respiratory exam: Present: normal lung sounds bilaterally. Absent: respiratory distress, wheezes, rales, rhonchi, stridor, chest wall tenderness, accessory muscle use, decreased breath sounds, prolonged expiratory - Cardiovascular Cardiovascular Exam: Present: regular rate, normal rhythm, normal heart sounds. Absent: systolic murmur, diastolic murmur, rubs, gallop - Neurological Exam Neurological exam: Present: alert, oriented X3 - Psychiatric Psychiatric exam: Present: normal affect, normal mood - Skin Skin exam: Present: warm, dry, intact ED Course Vital Signs 10/01/21 10/01/21 18:47 22:08 Temperature 97.5 F L 97.9 F Pulse Rate 88 71 Respiratory 20 16 Rate Blood Pressure 108/79 Blood Pressure 110/73 [Left] O2 Sat by Pulse 96 100 Oximetry ED Medical Decision Making - Lab Data Result diagrams: 10/01/21 19:01 10/01/21 19:01 Lab Results 10/01/21 10/01/21 10/01/21 Range/Units 19: 19: 20:46 WBC 7.5 (4.5-11.0) K/mm3 RBC 4.01 (3.65-5.03) M/mm3 Hgb 12.8 (10.1-14.3) gm/dl Hct 38.5 (30.3-42.9) % MCV 96 (79-97) fl MCH 32 (28-32) pg MCHC 33 (30-34) % RDW 13.4 (13.2-15.2) % Plt Count 190 (140-440) K/mm3 Lymph % (Auto) 44.9 H (13.4-35.0) % [place] % (Auto) 8.2 H (0.0-7.3) % Eos % (Auto) 4.2 (0.0-4.3) % Baso % (Auto) 0.9 (0.0-1.8) % Lymph # (Auto) 3.4 (1.2-5.4) K/mm3 [place] # (Auto) 0.6 (0.0-0.8) K/mm3 Eos # (Auto) 0.3 (0.0-0.4) K/mm3 Baso # (Auto) 0.1 (0.0-0.1) K/mm3 Seg Neutrophils % 41.8 (40.0-70.0) % Seg Neutrophils # 3.1 (1.8-7.7) K/mm3 Sodium 138 (137-145) mmol/L Potassium 3.8 (3.6-5.0) mmol/L Chloride 104.0 (98-107) mmol/L Carbon Dioxide 23 (22-30) mmol/L Anion Gap 15 mmol/L BUN 10 (7-17) mg/dL Creatinine 0.8 (0.6-1.2) mg/dL Estimated GFR > 60 ml/min BUN/Creatinine Ratio 13 % Glucose 119 H (65-100) mg/dL Calcium 8.2 L (8.4-10.2) mg/dL Total Bilirubin 0.30 (0.1-1.2) mg/dL AST 24 (5-40) units/L ALT 19 (7-56) units/L Alkaline Phosphatase 64 (35-129) units/L Troponin T < 0.010 < 0.010 (0.00-0.029) ng/mL Total Protein 6.8 (6.3-8.2) g/dL Albumin 3.7 L (3.9-5) g/dL Albumin/Globulin Ratio 1.2 % - EKG Data EKG shows normal: sinus rhythm, axis, intervals, QRS complexes, ST-T waves Rate: normal - Radiology Data Radiology results: report reviewed Ordering Physician: JIN VERA Date of Service: 10/01/21 Procedure(s): XR chest routine 2V Accession Number(s): [id number] cc: JIN VERA Fluoro Time In Minutes: CHEST 2 VIEWS INDICATION: chest pain. COMPARISON: 11/05/2020 FINDINGS: Support devices: None. Heart: Within normal limits. Lungs/Pleura: No acute air space or interstitial disease. No significant pleural effusion. IMPRESSION: No acute findings. Signer Name: Fabrice Camargo MD Signed: 10/01/2021 7:37 PM Workstation Name: [id number] Transcribed By: ES Dictated By: Fabrice Camargo MD Electronically Authenticated By: Fabrice Camargo MD Signed Date/Time: 10/01/211936 DD/ 35 TD/TT: - Medical Decision Making Patient is a 56-year-old female presents emergency room complaints of chest pain that began earlier tonight. She states that it was on the right side of her chest and then was radiating across the chest. She states that it felt like gas versus indigestion. She denies any shortness of breath, nausea, vomiting, diarrhea, fever, cough, hemoptysis, leg swelling, calf pain, diaphoresis. Past medical history of COPD, anxiety, depression. She states that she has a former history of hypertension but has been able to get off her medication and now just controls her blood pressure with diet and exercise. She has an allergy to [place], nuts, penicillin, aspirin. She is a former smoker and quit approximately 7 to 8 years ago. She states that her mother has a history of CAD but is still living at this time. she states she had a stress test earlier this year which she reports was normal. Vitals are normal. EKG is within normal limits. Chest x-ray with no acute process. Labs are stable. Troponin is negative x2. Patient given medications on the emergency department with some improvement of her chest pain. Heart score is 2, low risk for cardiac event. Patient will be referred to her time study technician and her primary care doctor. Advised patient Please follow-up with a primary care doctor. Please follow-up with a card iologist. Return to emergency room for any new or worsening symptoms. Critical care attestation.: If time is entered above; I have spent that time in minutes in the direct care of this critically ill patient, excluding procedure time. ED Disposition Clinical Impression: Chest pain Qualifiers: Chest pain type: unspecified Qualified Code(s): R07.9 - Chest pain, unspecified Disposition: HOME / SELF CARE / HOMELESS Is pt being admited?: No Does the pt Need Aspirin: No (not given due to aspirin allergy) Condition: Stable Instructions: Nonspecific Chest Pain, Adult Additional Instructions: Please follow-up with a primary care doctor. Please follow-up with a time study technician. Return to emergency room for any new or worsening symptoms. Referrals: your, primary care doctor [Other] - 3-5 Days your, time study technician [Other] - 3-5 Days Time of Disposition: 21:28 Print Language: ROMANIAN HEART Score - HEART Score History: Slightly suspicious EKG: Normal Age: 45-65 Risk factors: 1-2 risk factors Troponin: Troponin T < 0.010 ng/mL (0.00-0.029) 10/01/21 20:46 Troponin: < normal limit HEART Score: 2
[2021-10-01 22:09] VITALS: BP 110/73
--- NOTE | 2021-10-02 13:06 | Electrocardiograph Report ---
[facility] Test Date: 2021-10-01 Test Time: 18:52:20 Pat Name: CATY CHAN Department: Room: Gender: F Infrastructure Administrator: BUCKY : 1965 Requested By: ASHLEY PETTY Order Number: [id number] Reading MD: Shilpa Carmona Measurements Intervals [place] Rate: 82 P: 56 NE: 133 QRS: -25 QRSD: 91 T: 31 QT: 404 QTc: 472 Interpretive Statements Sinus rhythm Consider left ventricular perjury No previous ECG available for comparison Electronically Signed On 10-02-2021 13:05:31 EST by Shilpa Carmona
== END 2021-10-01 22:09 | disposition home or self-care (01) ==
LOC: ED 18:40
DX: R07.89 Other chest pain (principal); F41.9 Anxiety disorder, unspecified; F32.9 Major depressive disorder, single episode, unspecified; J45.909 Unspecified asthma, uncomplicated; Z90.710 Acquired absence of both cervix and uterus; Z88.0 Allergy status to penicillin; Z91.040 Latex allergy status; Z88.6 Allergy status to analgesic agent; Z91.018 Allergy to other foods; Z79.899 Other long term (current) drug therapy
CPT/HCPCS: 36415; 71046; 80053; 84484; 85025; 93005; 99283